=== PATIENT | female | born 1960 | race Caucasian/White ===

== ENCOUNTER 2025-10-05 10:37 | Emergency (ER) | payer MEDICARE, SELFPAY ==
[2025-10-05] VITALS (10 sets, daily range): BP systolic 98–137; BP diastolic 52–84; BMI 33.0
[2025-10-05 12:06] LABS: Hematocrit 38.0 % (37.0-47.0); Hemoglobin 13.0 g/dL (12.0-16.0); Mean Corp Hgb Conc. 34.2 g/dL (33.0-37.0); Mean Corpuscular Volume 82.6 fL (81.0-99.0); Nucleated Red Blood Cells % 0 %; Platelet Count 223 10^3/uL (130-400); Red Cell Dist. Width 13.5 % (11.5-14.5)
[2025-10-05 12:21] LABS: ALT (SGPT) 15 U/L (0-35); AST (SGOT) 21 U/L (14-36); Albumin 3.9 g/dl (3.5-5.0); Alkaline Phosphatase 101 U/L (38-126); Blood Urea Nitrogen 15 mg/dl (7-17); Calcium 9.1 mg/dl (8.4-10.2); Carbon Dioxide 22 mmol/L (22-30); Chloride 104 mmol/L (98-107); Glucose 130 mg/dl (70-99); Lipase 36 U/L (23-300); Potassium 4.0 mmol/L (3.5-5.1); Sodium 135 mmol/L (135-145); Total Protein 6.5 g/dl (6.3-8.2); eGFR > 60.00
--- NOTE | 2025-10-05 14:10 | ED.GENMED ---
History of Present Illness
General
Chief Complaint: Abdominal Pain
Source: patient
Exam Limitations: none
Time Seen by Provider: 10/05/25 13:42
Nursing documentation reviewed up to this point in time: agreed with
History of Present Illness
History of Present Illness:
Patient is a 65-year-old female with history of amyloidosis who presents to the emergency department for evaluation of abdominal pain. Patient states symptoms began on Monday night around 7:30 PM after eating dinner. She describes initially a
sharp pain in her right lower abdomen/groin as well as her right back. She had a few episodes of vomiting at that point. Yesterday, symptoms seem improved until approximately 10 PM where she reports worsening pain in her back as well as upper
abdomen. She had a few episodes of vomiting once again which she improved symptoms temporarily. Pain seems to be exacerbated after eating.
Today after waking she had returned of symptoms prompting evaluation in the emergency department. Patient denies any fever or chills. No diarrhea, constipation, dysuria, or hematuria. No chest pain or shortness of breath
Patient takes Eliquis. She does have a past history of kidney stones. 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
Past History
Past History
ED Past Medical History: Other (Ovarian cysts) and Other (Kidney stones, celiac ds)
ED Past Surgical History: Other (Laparoscopies for endometriosis)
Social History
Tobacco: Non-smoker
Alcohol: None
Drug: None
Personal:
Living: with family
Employment: Employed
Review of Systems
Review of Systems
Allergies reviewed?: Yes
All Other Systems: ROS reviewed and negative except as documented in HPI and ROS
Phy Exam
Physical Exam
Physical Exam:
Vitals: Patient's vital signs are stable. Afebrile
General: Patient appears in no distress at rest.
Skin: Warm and dry, no rashes or lesions
Head: Normocephalic, atraumatic
Eyes: Sclera nonicteric.
Throat: Protecting airway
Neck: Normal ROM, no cervical spine tenderness, no meningismus
Cardiac: Regular rate and rhythm, no murmurs.
Pulm: Normal respiratory effort. Lungs clear bilaterally
Abdomen: Abdomen soft throughout with areas of tenderness both in left lower quadrant as well as right lower quadrant. No rebound tenderness. Negative Emery sign.
Back: No midline spinal tenderness. Mild reproducible tenderness along right flank without rash or ecchymoses.
Extremities: No evidence of cyanosis or edema
Neuro: AAOx3. Grossly intact
Psychiatric: Normal affect.
Course
Orders/Labs/Results
Orders:
Orders
10/05/25 11:37
IV Insert/Care/Rem.- Treatment PRN
10/05/25 11:52
Complete Blood Count/With Diff Urgent
Comprehensive Metabolic Panel Urgent
Lipase Urgent
10/05/25 14:08
0.9% Sodium Chloride 1000 ml [Nss] 1,000 ml IV BOLUS
Morphine Sulfate 4 mg IV NOW STA
US Abdomen Complete/Upper Urgent
Comment:
Reason For Exam: postprandial abdominal/back pain; N/V
10/05/25 14:27
Urinalysis Reflex To Culture Urgent
Date Specimen was Collected: 10/05/25
Time Specimen was Collected: 14:18
Urine Microscopic Reflex Cult Urgent
Urine Culture Urgent
CHINEDU Source: U
Specimen Description:
Date Specimen was Collected: 10/05/25
Time Specimen was Collected: 14:18
10/05/25 17:16
Abdomen/Pelvis wo Contrast CT [CT Abd/pelvis Wo Iv Cont] Urgent
Comment:
Reason For Exam: Right flank pain
10/05/25 19:36
Ciprofloxacin HCl [Cipro] 250 mg PO NOW STA
Morphine Sulfate 4 mg IV NOW STA
Tamsulosin [Flomax] 0.4 mg PO NOW STA
10/05/25 19:43
Add On - Microbiology Urgent
Tests Added?: urine culture
Abnormal Lab Results
10/05/25 10/05/25
11:52 14:27
WBC 12.5 H 10^3/uL
(4.8-10.8)
MPV 10.6 H fL
(7.4-10.4)
Absolute Neuts (auto) 10.8 H 10^3/uL
(1.4-6.5)
Absolute Lymphs (auto) 0.9 L 10^3/uL
(1.2-3.4)
Absolute Monos (auto) 0.7 H 10^3/uL
(0.1-0.6)
Neutrophils % 86.3 H %
(42.2-75.2)
Lymphocytes % 6.9 L %
(20.5-51.1)
Glucose 130 H mg/dl
(70-99)
Urine Ketones 1+ A
(Negative)
Ur Occult Blood Reflex 4+ A
(Negative)
Leukocyte Esterase Rfl 1+ A
(Negative)
Urine RBC 50-60 A /HPF
(0-2)
Urine WBC (Reflex) 11-15 A /HPF
(0-5)
Urine Bacteria (Reflex) Moderate A
(Negative)
Urine Albumin (Reflex) 2+ A
(Neg - Trace)
10/05/25 11:52
10/05/25 11:52
Vital Signs
Initial and Last Documented VS:
Initial Vital Signs
Temp Pulse Resp BP Pulse Ox
97.8 F 99 20 137/84 97
10/05/25 10:40 10/05/25 10:40 10/05/25 10:40 10/05/25 10:40 10/05/25 10:40
Last Documented Vital Signs
Temp Pulse Resp BP Pulse Ox
97.8 F 64 14 114/64 94
10/05/25 15:00 10/05/25 20:00 10/05/25 20:00 10/05/25 20:00 10/05/25 20:00
MDM/Problems Addressed
Differential Diagnosis Includes:
Not limited to: Biliary colic, acute cholecystitis, choledocholithiasis, renal colic, pyelonephritis, appendicitis, diverticulitis, etc.
MDM/Problems Addressed:
65-year-old female with remittent abdominal pain as well as nausea/vomiting. No fever, urinary symptoms, or changes in bowel habits. No chest pain or shortness of breath. Vital stable. On exam, comfortable at rest however does have reproducible
tenderness with left and right lower abdomen. No rebound tenderness or guarding. Negative Emery sign. Cardio/pulmonary assessment unremarkable.
Differential broad as above. Location of pain seems to be migrating throughout abdomen and back. However, there does seem to be a clearly postprandial nature to symptoms.
Labs were sent prior to my evaluation significant for a mild leukocyte 1.5 with left shift. Chemistry unremarkable. Will start with abdominal ultrasound to evaluate for any obstructive uropathy or biliary etiology. Plans to pursue CT scan if no
acute abnormality identified. Will give IV fluids, analgesia and reassess
Update: Ultrasound reveals right-sided hydronephrosis with potential small stone, as well as possible gallstone without other findings of acute cholecystitis. On reassessment, patient's pain has improved. Will proceed with CT noncontrast of
abdomen/pelvis for further evaluation.
Update: CT reveals approximately 3 mm right proximal ureteral stone. No abnormality of gallbladder identified on CT imaging. Suspect patient symptoms are secondary to obstructing ureteral stone. Also notes concern for omental metastatic
disease�this was discussed with patient at length who currently follows with an oncologist for multiple myeloma. She will discuss these findings with them outpatient for further workup as needed.
UA somewhat equivocal for infection. Her pain is well-controlled. I did discuss with urology, Dr. Cabral. He feels appropriate for trial of stone passage outpatient however does recommend course of antibiotics, ciprofloxacin Pending urine
culture. Strict return precautions were discussed including any signs of infection or intractable pain. Patient otherwise stable for discharge home. She will follow-up with urology and oncology outpatient.
Chronic conditions affecting care:
Amyloidosis
Acute Exacerbation and/or Progression of Chronic Illness:
N/A
*Radiology
Radiology exam reviewed: radiology read reviewed
*Pulse Oximetry
SaO2: 95
Oxygen Mode of Delivery: Room air
Patient hypoxic: no
*EKG
Interpreted by ED Provider?: NA
*Mirror Machine Feeder Interpretation
Rate: Mirror Machine Feeder- N/A
*Critical Care Note
Total Time (30-74mins, 75-104mins- exclusive of procedures): Not Applicable
Patient Management
Discussion with other providers: Customer Trainer ( Case discussed with urology)
ED Attending Note
-
Portions of this chart may have been created with voice recognition software.� Occasional wrong word or��sound alike� substitutions may have occurred due to the inherent limitations of voice recognition software.
Discharge Plan
Departure
Patient Disposition: Home (Routine Discharge)
Date of Disposition: 10/05/25
Time of Disposition: 19:42
Patient with high blood pressure during this ER visit?: Yes
Condition: Good
Discharge Problem:
Calculus of proximal right ureter
Instructions: Kidney Stones (DC), BLOOD PRESSURE
Prescriptions:
New
ciprofloxacin HCl 250 mg tablet
250 mg PO BID 7 Days Qty: 14 0RF
tamsulosin 0.4 mg capsule
0.4 mg PO DAILY 14 Days Qty: 14 0RF
No Action
tramadol 50 MG tablet
50 mg PO TIDPRN PRN (Reason: back pain)
dorzolamide 1 DROP drops
1 drp ophthalmic (eye) BID
travoprost (benzalkonium) 2.5 ML drops
2.5 ml OP HS
cyclobenzaprine 10 MG tablet
10 mg PO TIDPRN PRN (Reason: pain) Qty: 12 0RF
multivitamin [One Daily Multivitamin] 1 EACH tablet
1 ea PO DAILY
metronidazole 500 MG tablet
500 mg PO TID
famotidine 20 MG tablet
20 mg PO DAILYPRN PRN (Reason: as directed)
levofloxacin 500 MG tablet
500 mg PO DAILY
dicyclomine 10 MG capsule
10 mg PO QIDPRN PRN (Reason: as directed)
Vitamin D3:
1 tab PO DAILY
Referrals:
Shaquille Matos MD [Active, [facility]]
Tyler Cabral MD [Active, Urology] - Next open appointment
Macie Joshi CRNP [Family Provider]
Activity Restrictions/Additional Instructions:
RETURN TO THE EMERGENCY DEPARTMENT WITH ANY FEVER, INTRACTABLE PAIN, INABILITY TO URINATE, INTRACTABLE VOMITING, SEVERE BACK PAIN, WORSENING CURRENT SYMPTOMS, OR ANY OTHER CONCERNS
- As discussed�your CT scan showed a 3 mm proximal right ureteral stone which is likely the cause of your pain today. You were also found to have abnormalities of your omentum on CT scan. Please ensure that you follow-up closely with your
oncologist for further workup as needed. You were also found to have gallstones�follow-up with general surgery outpatient
- Continue to take Tylenol at home as needed for pain. You can take oxycodone (prescription which you already have) for intractable pain. A prescription for antibiotics has been sent to the pharmacy which you to take as directed.
- Please follow a bland diet. Stay well-hydrated. Take Flomax daily until you pass stone. Continue to strain your urine daily.
- Follow-up with urology and oncology for further evaluation/management as needed
Monitor your symptoms closely and return to the emergency department with any acute worsening/new symptoms or any other concerns
Interventions
Interventions:
*General Assessment Last Done: 10/05/25 13:06
*Neglect/Abuse Screening Last Done: 10/05/25 13:06
*ED COVID-19 Vaccine History Last Done: 10/05/25 10:40
*ED Influenza Vaccine History Last Done: 10/05/25 10:40
[facility] Risk Assessment Tool Last Done: 10/05/25 13:03
*Risk Screen - Suicide (C-SSRS) Last Done: 10/05/25 10:40
*Nursing Disposition Last Done: 10/05/25 20:54
IO-Patvfd-Nhywfclits Assessment Last Done: 10/05/25 20:18
Discharge Date and Time
Discharge Date/Time: 10/05/25 20:54
Print Language: MONTSERRATIAN
[2025-10-05] MEDS: NSS 1000 IV (14:19)
[2025-10-05] MEDS: MORPHINE SULFATE 4 MG IV ×2 (14:20→20:23)
[2025-10-05 15:21] LABS: Urine Character Cloudy (Clear)
[2025-10-05 16:03] LABS: Urine Squamous Cell 0-2 /LPF (Few); Urine Urothelial Cell 0-2 /LPF (FEW)
[2025-10-05 16:04] LABS: Urine Red Blood Cell 50-60 /HPF (0-2)
--- NOTE | 2025-10-05 19:55 | EDRN ---
Called pharmacy for abdi PO
[2025-10-05] MEDS: FLOMAX 0.4 MG PO (20:18)
[2025-10-05] MEDS: CIPRO 250 MG PO (20:18)
== END 2025-10-05 20:54 | disposition home or self-care (01) ==
LOC: EMR 10:37
PROVIDERS: Emergency Medicine; Physician Assistant; EMERGENCY PHYSICIAN Emergency Medicine; FAMILY PHYSICIAN Nurse Practitioner Family
DX: N13.2 Hydronephrosis with renal and ureteral calculous obstruction (principal); R03.0 Elevated blood-pressure reading, without diagnosis of hypertension; E85.9 Amyloidosis, unspecified; K90.0 Celiac disease; K86.81 Exocrine pancreatic insufficiency; C90.00 Multiple myeloma not having achieved remission; Z87.442 Personal history of urinary calculi
CPT/HCPCS: 99284; 96374; 96376; 96361; 74176; 76700; 80053; 81003; 81015; 83690; 85025; 87086

== ENCOUNTER 2025-10-08 03:02 | Inpatient (IN) | payer MEDICARE, SELFPAY ==
[2025-10-07 18:10] VITALS: BP 140/81
[2025-10-07 18:58] LABS: Hematocrit 38.5 % (37.0-47.0); Hemoglobin 13.1 g/dL (12.0-16.0); Mean Corp Hgb Conc. 34.0 g/dL (33.0-37.0); Mean Corpuscular Volume 83.3 fL (81.0-99.0); Nucleated Red Blood Cells % 0 %; Platelet Count 213 10^3/uL (130-400); Red Cell Dist. Width 13.3 % (11.5-14.5)
[2025-10-07 19:18] LABS: ALT (SGPT) 14 U/L (0-35); AST (SGOT) 20 U/L (14-36); Albumin 4.2 g/dl (3.5-5.0); Alkaline Phosphatase 111 U/L (38-126); Blood Urea Nitrogen 15 mg/dl (7-17); Calcium 9.2 mg/dl (8.4-10.2); Carbon Dioxide 25 mmol/L (22-30); Chloride 99 mmol/L (98-107); Glucose 139 mg/dl (70-99); Potassium 4.0 mmol/L (3.5-5.1); Sodium 134 mmol/L (135-145); Total Protein 6.9 g/dl (6.3-8.2); eGFR > 60.00
[2025-10-07 21:40] VITALS: BMI 32.5
[2025-10-07 21:43] VITALS: BP 140/83
[2025-10-07 22:00] VITALS: BP 141/78
[2025-10-07] MEDS: DILAUDID 0.5 MG IV (22:46)
[2025-10-07] MEDS: REGLAN 10 MG IV (22:48)
[2025-10-07] MEDS: NSS 1000 IV (22:49)
--- NOTE | 2025-10-07 23:58 | ED.GENMED ---
History of Present Illness
General
Chief Complaint: Flank Pain
Source: patient
Exam Limitations: none
Time Seen by Provider: 10/07/25 22:03
Nursing documentation reviewed up to this point in time: agreed with
History of Present Illness
History of Present Illness:
Note:
CHIEF COMPLAINT(S)
Pain and vomiting.
HISTORY OF PRESENT ILLNESS
The patient is a 65-year-old female with a history of multiple myeloma who presented with ongoing pain and vomiting. She initially sought care on Monday for these symptoms and was prescribed ciprofloxacin and tamsulosin. Despite this, she continues
to experience significant pain and episodes of vomiting, including just before this visit. She consulted her oncologist to discuss her current medications and was advised to seek an alternative analgesic, given that oxycodone was not providing
sufficient relief for her kidney-related pain. The patient mentioned experiencing excruciating pain that radiates from her back to her leg and down to her groin, describing it as severe enough to cause emotional distress. She has also noted a
low-grade fever that fluctuates, with a recent temperature recorded at 100�F, although typically her baseline temperature is 97.5�F. The patient expressed concerns about her pain worsening overnight and requested further investigation and pain
management.
PAST MEDICAL AND SURGICAL HISTORY
The patient has a history of multiple myeloma and amyloidosis.
ADDITIONAL HISTORY OBTAINED FROM SOURCES OTHER THAN THE PATIENT
Family: The patients can provide a list of her medications via her patient portal.
CHRONIC MEDICAL CONDITIONS SIGNIFICANTLY AFFECTING CARE
1. Multiple myeloma.
2. Amyloidosis.
ALLERGIES
The patient is allergic to penicillin and sulfa drugs.
REVIEW OF SYSTEMS
- Constitutional: Reports a low-grade fever and temperature variations.
- Gastrointestinal: Reports nausea and vomiting.
- Musculoskeletal: Reports excruciating pain radiating from the back to the leg and groin.
PHYSICAL EXAM
General: Alert, no acute distress.
Skin: Warm, dry.
Head: Normocephalic, atraumatic.
Neck: Supple, trachea midline.
Eye Ears, nose, mouth and throat: Oral mucosa moist.
Cardiovascular: Normal peripheral perfusion, No edema.
Respiratory: Respirations are non-labored.
Gastrointestinal: Abdomen nondistended.
Back: Normal range of motion, Normal alignment.
Musculoskeletal: Normal ROM, normal strength.
Neurological: Alert and oriented to person, place, time, and situation, No focal neurological deficit observed.
Psychiatric: Cooperative, appropriate mood & affect.
PROBLEM LIST
Acute Problems:
1. Pain and vomiting.
2. Low-grade fever.
Chronic Problems:
1. Multiple myeloma.
2. Amyloidosis.
PLAN
1. Initiate pain management with stronger analgesic options, potentially a fentanyl patch.
2. Admit the patient for overnight observation and pain control.
3. Consult with urology for further evaluation and possibly a urography tomorrow.
4. Confirm medication list with the patients via the patient portal and address any medication needs.
5. Administer dilaudid as prescribed for pain control.
DIFFERENTIAL DIAGNOSIS
The Differential Diagnosis includes, in no particular order and is not limited to:
1. Kidney stones.
2. Infection-related pyelonephritis.
3. Renal colic.
4. Neuropathic pain due to multiple myeloma.
5. Metastatic disease-associated pain.
6. Acute or chronic pancreatitis.
7. Gastrointestinal obstruction.
8. Drug-induced nausea/vomiting.
9. Biliary colic.
10. Urological malignancy.
Disposition:
SUMMARY OF ENCOUNTER
The patient, a 65-year-old female with a history of multiple myeloma, amyloidosis, and a known right-sided kidney stone, presented to the emergency department due to uncontrolled pain, nausea, and vomiting. Despite previous medication, her chronic
pain medications were inadequate in managing her current symptoms, and she expressed concern about ongoing low-grade fevers. An ultrasound was performed today, revealing findings consistent with previous evaluations, suggesting a persistent issue
potentially related to her kidney stone.
DISPOSITION
Admit for overnight observation and pain control.
ASSESSMENT
The patient�s symptoms align with kidney stone-related pain exacerbated by her chronic conditions of multiple myeloma and amyloidosis. Her low-grade fever could be associated with the kidney stone or another underlying issue.
PLAN
1. Initiate pain management with stronger analgesic options, potentially a fentanyl patch.
2. Admit the patient for overnight observation and pain control.
3. Consult with urology for further evaluation and possibly a urography tomorrow.
4. Confirm medication list with the patients via the patient portal and address any medication needs.
5. Administer dilaudid as prescribed for pain control.
MEDICATION RECONCILIATION
1. Fentanyl patch considered for pain management.
2. Administer dilaudid for acute pain control.
MEDICAL DECISION MAKING
1. Number and Complexity of Problems Addressed: Chronic conditions affecting care include multiple myeloma, amyloidosis, and kidney stone. Differential diagnosis includes kidney stones, infection-related pyelonephritis, renal colic, neuropathic pain
due to multiple myeloma, metastatic disease-associated pain, acute or chronic pancreatitis, gastrointestinal obstruction, drug-induced nausea/vomiting, biliary colic, and urological malignancy.
2. Data:
Category 1: Review of prior ultrasound findings.
Category 2: Information obtained from patients via potential consultation for medication listing.
Category 3: Discussion of management with urology.
3. Risk:
Prescription drug management was considered for fentanyl patch and dilaudid.
Admission was decided to manage pain and further evaluate with urology consultation.
DIAGNOSIS
1. Kidney stone (N20.0)
2. Multiple myeloma (C90.0)
3. Amyloidosis (E85.9)
4. Pain not elsewhere classified (R52)
Past History
Past History
ED Past Medical History: Other (Ovarian cysts) and Other (Kidney stones, celiac ds)
ED Past Surgical History: Other (Laparoscopies for endometriosis)
Social History
Tobacco: Non-smoker
Alcohol: None
Drug: None
Personal:
Living: with family
Employment: Employed
Review of Systems
Review of Systems
Allergies reviewed?: Yes
Phy Exam
Physical Exam
Physical Exam:
.
Course
Orders/Labs/Results
Orders:
Orders
10/07/25 18:39
CMP [Comprehensive Metabolic Panel] Urgent
Complete Blood Count/With Diff Urgent
10/07/25 22:26
HYDROmorphone [Dilaudid] 0.5 mg IV NOW STA
10/07/25 22:27
Metoclopramide [Reglan] 10 mg IV NOW STA
10/07/25 22:28
US Kidneys [US Renal Only W/O Bladder] Urgent
Comment:
Reason For Exam: r flank pain, known kidney stone from ct on 10/05
10/07/25 22:30
0.9% Sodium Chloride 1000 ml [Nss] 1,000 ml IV 250 mls/hr
10/08/25 02:51
Admit/Transfer Patient As Directed
Co-Sign Provider:
Level of Care: Inpatient admission
Assign to:: Medical/Surgical
Physician / Group: [facility]
Diagnosis: R Ureteral Stone
Reason for Hospitalization: R Ureteral Stone
Expected length of stay greater than two midnights?: Yes
ELOS- Estimated Length of Stay in days: 3
I certify the patient meets the requirements for IP care: Yes
PRN Pain Medication Management As Directed
May give lesser potent ordered pain med per pt: Yes
preference::
Protocol:: Medication orders for pain may be administered in a
manner that supports deferring to patient preference
when the pt is:
- Requesting an ordered lesser potent pain medication.
Least to most potent pain medications are defined
as: acetaminophen < NSAID < tramadol < opioids
(morphine, oxycodone, hydromorphone).
- Requesting a lesser dose of the same medication IF
ORDERED.
- Requesting a less intrusive route of administration
if both routes are prescribed by the provider (PO <
IV).
10/08/25 02:52
Code Status As Directed
Resuscitation Status: Full Code
10/08/25 03:38
0.9% Sodium Chloride 1000 ml [Nss] 1,000 ml IV 85 mls/hr
Acetaminophen [Tylenol] 650 mg PO Q4HPRN PRN
HYDROmorphone [Dilaudid] 0.5 mg IV Q4HPRN PRN
Prochlorperazine [Compazine] 5 mg IV Q6HPRN PRN
10/08/25 03:38
UROLOGY CONSULT Routine
Consulting Provider: Yajaira Bourne
Was physician already notified: Yes
Comment: R Ureteral Stone
Activity As Directed
Activity Level: Ambulate
With Assistance
I/O [Intake/ Output] As Directed
Frequency: Per unit guidelines
Pneumatic Compression Sleeves As Directed
Type: Knee high
Strain Urine As Directed
Vital Signs As Directed
Frequency: Per unit guidelines
Oxygen Therapy [O2 Therapy] [RESP] Routine
Titrate/Wean O2 to maintain O2 sat greater than (%): 94
DX Deep Vein Thrombosis Video Routine
10/08/25 04:00
Ciprofloxacin 200 mg/[id number] [Cipro 200 mg] 100 ml IV Q12H
10/08/25 05:32
Basic Metabolic Panel IN AM
Complete Blood Count/No Diff IN AM
10/08/25 Breakfast
NPO
Allow oral meds: Yes
Allow clear liquids: Sips of Clears
10/08/25 08:00
Morphine Sulfate Extended Rel. [Ms Contin (Extended Release)] 60 mg PO BID
Rosuvastatin Calcium [Crestor] 5 mg PO DAILY
Spironolactone [Aldactone] 25 mg PO DAILY
Tamsulosin [Flomax] 0.4 mg PO DAILY
10/08/25 22:00
Mirtazapine [Remeron] 30 mg PO HS
Abnormal Lab Results
10/07/25
18:39
WBC 12.8 H 10^3/uL
(4.8-10.8)
MPV 10.7 H fL
(7.4-10.4)
Abs Immat Gran (auto) 0.1 H 10^3/uL
(0-0.05)
Absolute Neuts (auto) 11.5 H 10^3/uL
(1.4-6.5)
Absolute Lymphs (auto) 0.4 L 10^3/uL
(1.2-3.4)
Absolute Monos (auto) 0.8 H 10^3/uL
(0.1-0.6)
Neutrophils % 89.9 H %
(42.2-75.2)
Lymphocytes % 3.1 L %
(20.5-51.1)
Sodium 134 L mmol/L
(135-145)
Glucose 139 H mg/dl
(70-99)
10/07/25 18:39
10/07/25 18:39
Vital Signs
Initial and Last Documented VS:
Initial Vital Signs
Temp Pulse Resp BP Pulse Ox
98.2 F 97 18 140/81 97
10/07/25 18:10 10/07/25 18:10 10/07/25 18:10 10/07/25 18:10 10/07/25 18:10
Last Documented Vital Signs
Temp Pulse Resp BP Pulse Ox
98.6 F 99 18 117/68 96
10/08/25 18:45 10/08/25 18:45 10/08/25 18:45 10/08/25 18:45 10/08/25 18:45
*Pulse Oximetry
SaO2: 97
Oxygen Mode of Delivery: Room air
Patient hypoxic: no
*Critical Care Note
Total Time (30-74mins, 75-104mins- exclusive of procedures): Not Applicable
ED Attending Note
-
Portions of this chart may have been created with voice recognition software.� Occasional wrong word or��sound alike� substitutions may have occurred due to the inherent limitations of voice recognition software.
Discharge Plan
Departure
Patient Disposition: Admit
Date of Disposition: 10/07/25
Time of Disposition: 23:59
Presentation/result/management discussed w/ accepting MD/DO: Hospitalist
Discharge Problem:
Kidney stone on right side, Chronic pain exacerbation
Interventions
Interventions:
*General Assessment Last Done: 10/07/25 18:10
*Neglect/Abuse Screening Last Done: 10/07/25 21:40
*ED COVID-19 Vaccine History Last Done: 10/07/25 18:10
*ED Influenza Vaccine History Last Done: 10/07/25 18:10
[facility] Fall Risk Assessment Tool Last Done: 10/07/25 21:40
*Risk Screen - Suicide (C-SSRS) Last Done: 10/07/25 18:10
*Nursing Disposition Last Done: 10/08/25 07:39
NI-Ervqje-Ebaxhfenpe Assessment Last Done: 10/07/25 21:40
ED-Female Genitourinary Assessment Last Done: 10/07/25 21:40
[2025-10-08] VITALS (17 sets, daily range): BP systolic 113–148; BP diastolic 61–94; BMI 31.4
[2025-10-08] MEDS: NSS 1000 IV ×3 (02:54→11:44)
--- NOTE | 2025-10-08 02:54 | HPS.HSE ---
Family Physician
-
Family Physician: AMALIA Singh
Chief Complaint
-
R Flank Pain, N/V
History of Present Illness
Patient is a 65y F with PMH significant for multiple myeloma and systemic amyloidosis who presents to ED complaining of R flank pain and N/V for several days. Patient states that symptoms started on Monday evening. She had pain in the R flank
with radiation into the abdomen / R groin. She had associated N/V. Her symptoms resolved and she felt well all day Monday. Sat evening her symptoms returned. Patient continued to have intermittent symptoms - mostly in the evenings. She
presented to the ED here on 10/[address] scan showed R ureteral stone with moderate hydronephrosis. Patient was discharged on Cipro and tamsulosin for trial of stone passage.
She has continued to have pain and intermittent N/V. She reports chills and general fatigue.
With persistent symptoms, she returned to the ED this evening for further evaluation.
Medical History
Past Medical History
Past Medical History: Reports Other
Additional Past Medical History:
Multiple Myeloma
Systemic Amyloidosis with Multiorgan Involvement
Infiltrative Cardiomyopathy / CHF
History of DVT / PE
Past Surgical History: Reports Other
Additional Past Surgical History:
Ex Lap (Endometriosis)
Carpal Tunnel Surgery
Excisional Biopsy
Social History
Tobacco: Non-smoker
Alcohol: None
Drug: None
Family History
Family History: Not pertinent
Allergies / Home Medications
Allergies reflects when Allergies were last updated in [facility].
Home Medications with original date entered in [facility]
Allergy/Medication List:
Allergies
Allergy/AdvReac Type Severity Reaction Status Date / Time
Penicillins Allergy Unknown Rash Verified 10/07/25 18:13
Sulfa (Sulfonamide Allergy Unknown Unknown Verified 10/07/25 18:13
Antibiotics)
cephalexin (From Keflex) Allergy Unknown Verified 10/07/25 18:13
clindamycin Allergy Unknown Verified 10/07/25 18:13
Home Medications
famotidine 20 mg tablet 20 mg PO DAILYPRN PRN as directed 05/05/18
multivitamin (One Daily Multivitamin tablet) 1 ea PO DAILY 05/05/18
apixaban 5 mg tablet (Eliquis) 5 mg PO BID 10/08/25
mirtazapine 30 mg tablet 30 mg PO HS 10/08/25
morphine 60 mg tablet,extended release 60 mg PO BID 10/08/25
potassium chloride 10 mEq capsule,extended release 10 meq PO DAILY 10/08/25
prochlorperazine maleate 10 mg tablet 10 mg PO Q6H PRN nausea 10/08/25
rosuvastatin 5 mg tablet 5 mg PO DAILY 10/08/25
spironolactone 25 mg tablet 25 mg PO DAILY 10/08/25
torsemide 20 mg tablet 20 mg PO BID 10/08/25
Review of Systems
-
History Source: Patient
A 12 point ROS was completed and negative except as noted: Yes
Constitutional: Reports Fatigue and Chills; Denies Fever
Respiratory: Denies Cough or Trouble Breathing
Cardiac: Denies Chest Pain or Palpitations
Abdomen/GI: Reports Abdominal Pain, Nausea and Vomiting; Denies Diarrhea
: Reports Flank Pain and Bleeding; Denies Dysuria or Frequency
Musculoskeletal: Denies Joint Pain or Edema
Neurological: Denies Dizzy or Headache
Psych: Denies Depression or Anxiety
Physical Exam
Vital Signs
Vital Signs
Temp Pulse Resp BP Pulse Ox
98.2 F 97 18 125/74 96
10/07/25 18:10 10/07/25 18:10 10/07/25 18:10 10/08/25 01:00 10/08/25 01:00
Physical Exam
General: Other (65y F in no acute distress at present.)
HEENT: Moist mucous membranes and PERRLA
Respiratory: Clear; No Wheezes, Rales or Rhonchi
Cardiac: S1/S2 and Regular Rhythm; No Murmur
GI: Soft, Non Distended, Normal Bowel Sounds and Other (Mild R sided abdominal tenderness. No rebound / guarding.)
Musculoskeletal: No Clubbing, No Cyanosis and No Edema
Neuro: AO x 3
Laboratory Results
-
10/07/25 18:39
10/07/25 18:39
Laboratory Results
Total Bilirubin 0.8 mg/dl (0.2-1.3) 10/07/25 18:39
AST 20 U/L (14-36) 10/07/25 18:39
ALT 14 U/L (0-35) 10/07/25 18:39
Alkaline Phosphatase 111 U/L (38-126) 10/07/25 18:39
Impression/Plan
-
A/P: Patient is a 65y F with PMH significant for MM and systemic amyloidosis who presents to ED complaining of persistent R flank pain and N/V.
Right Ureterolithiasis
Moderate R Hydronephrosis secondary to the above
- Admit for further evaluation and treatment.
- NPO, IVFs, pain control. Tamsulosin and strain urine overnight.
- Urology consulted for possible intervention if needed.
- Hold further Eliquis (last dose was Monday).
- Continue empiric abx with Cipro given multiple drug allergies.
- Follow for clinical improvement.
Systemic Amyloidosis
Multiple Myeloma
Infiltrative Cardiomyopathy
- Stable. Continue spironolactone. Hold torsemide acutely.
- Follow I/Os, daily weights, etc.
- Continue current med regimen for chronic pain.
- IV Dilaudid PRN acute / breakthrough pain.
DVT Prophylaxis: SCDs while Eliquis on hold. Resume anticoagulation when OK with Urology.
Code Status: Full
[2025-10-08] MEDS: CIPRO 200 MG 100 IV (04:12)
[2025-10-08] MEDS: DILAUDID 0.5 MG IV ×2 (04:15→10:24)
[2025-10-08 06:08] LABS: Hematocrit 31.8 % (37.0-47.0); Hemoglobin 11.1 g/dL (12.0-16.0); Mean Corp Hgb Conc. 34.9 g/dL (33.0-37.0); Mean Corpuscular Volume 81.7 fL (81.0-99.0); Platelet Count 187 10^3/uL (130-400); Red Cell Dist. Width 13.3 % (11.5-14.5)
[2025-10-08 06:40] LABS: Blood Urea Nitrogen 14 mg/dl (7-17); Calcium 8.5 mg/dl (8.4-10.2); Carbon Dioxide 21 mmol/L (22-30); Chloride 105 mmol/L (98-107); Estimated Creatinine Clearance 85 ml/min; Glucose 119 mg/dl (70-99); Potassium 3.9 mmol/L (3.5-5.1); Sodium 134 mmol/L (135-145); eGFR > 60.00
[2025-10-08] MEDS: COMPAZINE 5 MG IV (10:23)
--- NOTE | 2025-10-08 11:07 | CONS.URO ---
Consultation
-
Date/Time Consultation Performed: 10/08/25, 0730
Performing Provider: Steffen
Reason for Consultation: obstructing R ureteral stone
Medical History
History of Present Illness
65y F with PMH significant for multiple myeloma and systemic amyloidosis who presents for recurrent pain with 3 mm R proximal obstructing ureteral stone. She initially presented to ER on 10/05 with R flank pain, n/v with pain radiating to R
groin. CT scan showed 3 mm R ureteral stone with moderate hydronephrosis. She was discharged on cipro and tamsulosin for trial of stone passage. Pain persisted along with low grade fevers to 100F, intermittent n/v and thus re-presented to ER.
In the ER she is overall well appearing however in mild discomfort. AFVSS. WBC 12 > 10, Cr stable 0.8. UA +LE, 11-15 WBCs, moderate bacteria.
Renal US shows persistent R hydronephrosis.
Allergies/Home Medications
Allergies
Allergy/AdvReac Type Severity Reaction Status Date / Time
Penicillins Allergy Unknown Rash Verified 10/07/25 18:13
Sulfa (Sulfonamide Allergy Unknown Unknown Verified 10/07/25 18:13
Antibiotics)
cephalexin (From Keflex) Allergy Unknown Verified 10/07/25 18:13
clindamycin Allergy Unknown Verified 10/07/25 18:13
Home Medications
�Medication �Instructions �Recorded �Confirmed �Type
famotidine 20 mg tablet 20 mg PO DAILYPRN PRN as directed 05/05/18 10/08/25 History
multivitamin (One Daily 1 ea PO DAILY 05/05/18 10/08/25 History
Multivitamin tablet)
apixaban 5 mg tablet (Eliquis) 5 mg PO BID 10/08/25 10/08/25 History
mirtazapine 30 mg tablet 30 mg PO HS 10/08/25 10/08/25 History
morphine 60 mg tablet,extended 60 mg PO BID 10/08/25 10/08/25 History
release
potassium chloride 10 mEq 10 meq PO DAILY 10/08/25 10/08/25 History
capsule,extended release
prochlorperazine maleate 10 mg 10 mg PO Q6H PRN nausea 10/08/25 10/08/25 History
tablet
rosuvastatin 5 mg tablet 5 mg PO DAILY 10/08/25 10/08/25 History
spironolactone 25 mg tablet 25 mg PO DAILY 10/08/25 10/08/25 History
torsemide 20 mg tablet 20 mg PO BID 10/08/25 10/08/25 History
Physical Exam
Vital Signs
Vital Signs
Temp Pulse Resp BP Pulse Ox
99.1 F 85 18 135/85 95
10/08/25 07:36 10/08/25 10:22 10/08/25 10:22 10/08/25 10:22 10/08/25 10:22
Lab / Testing Results
Laboratory Results
10/08/25 05:32
10/08/25 05:32
Physical Exam
General: Well Developed and Pain
HEENT: Normocephalic
Respiratory: Clear
GI: Soft
Genito-urinary: No Costovertebral Tend
Skin: Warm and Dry
Neuro: Awake, Alert and Oriented
Assessment / Plan
-
65F with 3 mm proximal R ureteral stone with moderate R hydronephrosis, low grade fevers and pain, nausea/vomiting refractory to medication.
Plan:
- NPO
- OR today for R ureteral stent
- Continue IVF
- Continue flomax
- Continue cipro
- F/u urine culture
--- NOTE | 2025-10-08 11:55 | W.PN.HOSP.TC ---
Today's Communication/Plan
-
Urology eval
Assessment / Plan
Assessment / Plan
Physical exam:
General: Well Developed, Well Nourished and No Apparent Distress
HEENT: Normocephalic, Atraumatic and Moist Mucous Membranes
Respiratory: Clear to Auscultation; Negative Wheezes, Rales or Rhonchi
Cardiac: Regular Rhythm and S1/S2
GI: Soft, Nontender and Nondistended
Musculoskeletal: No Clubbing, No Cyanosis and No Edema
Neuro: Awake, Alert and Oriented, no neuro deficits
Psych: Calm
A/P:
Right Ureterolithiasis
Moderate R Hydronephrosis secondary to the above
- Admit for further evaluation and treatment.
- NPO, IVFs, pain control. Tamsulosin and strain urine overnight.
- Urology consulted for possible intervention if needed.
- Hold further Eliquis (last dose was Monday).
- Continue empiric abx with Cipro given multiple drug allergies.
- Follow for clinical improvement.
- D/C planning either later today or in am
Systemic Amyloidosis
Multiple Myeloma
Infiltrative Cardiomyopathy
- Stable. Continue spironolactone. Hold torsemide acutely but give Lasix 20 mg iv x1 given how much fluid she has received and some initial symptoms.
- Follow I/Os, daily weights, etc.
- Continue current med regimen for chronic pain.
- IV Dilaudid PRN acute / breakthrough pain.
Chronic pain syndrome with narcotic dependence:
Continue chronic pain medication
DVT Prophylaxis: SCDs while Eliquis on hold. Resume anticoagulation when OK with Urology.
Code Status: Full
Anticipated Discharge: Today
Subjective/Interval History
-
Date of Service: October 08, 2025
Patient states pain improving this morning, no sob but later on RN reported patient c/o abd distention/sob.
Objective Data
-
Labs:
Laboratory Results
10/08/25
05:32
WBC 10.1
Hgb 11.1 L
Hct 31.8 L
Plt Count 187
Sodium 134 L
Potassium 3.9
Chloride 105
Carbon Dioxide 21 L
BUN 14
Creatinine 0.8
Glucose 119 H
Calcium 8.5
Vital Signs:
Vital Signs
Temp Pulse Resp BP Pulse Ox
98.9 F 83 16 133/75 97
10/08/25 11:10 10/08/25 11:10 10/08/25 11:10 10/08/25 11:10 10/08/25 11:10
[2025-10-08] MEDS: LASIX 20 MG IV (12:57)
--- NOTE | 2025-10-08 13:19 | PTCARENOTE ---
TT sent to Dr Almaraz at 1221- Pt with history of CHF- POLO on exertion to bathroom and she stated her abdomen is feeling 'bloated'. IVF rate decreased 85/hr. One time dose of IV lasix given.
[2025-10-08] MEDS: CIPRO 200 MG IV (15:39)
--- NOTE | 2025-10-08 16:14 | W.SUR.POST ---
Surgical Immediate Post Op
Note
Pre Op Diagnosis: rt prox uretral stone with intractable pain hydro
Post Op Diagnosis: same
Procedure Performed: rt ureteroscopy and laser stent
Primary Surgeon:maegan
Secondary Surgeons:
Anesthesia: chambers general
Estimated Blood Loss: 1
Fluids: nss
Drains/Shunts: 6 fr 24 cm jj stent
Specimens/Cultures:
Doppler/Duplex/Angio (Y/N):
Complications: 0
Operative Findings:3 mm ston stuck rt prox uretr with obstruction
--- NOTE | 2025-10-08 17:08 | W.DCSUMMARY ---
Discharge Summary
Discharge Data
Date of Admission: 10/08/25
Date of Discharge: 10/08/25
Total time spent discharging patient (in min): 33
-
Pending Results: No
Hospital Course
Patient is 65 years old female with past medical history of systemic amyloidosis, multiple myeloma, infiltrative cardiomyopathy, DVT/PE in the past on anticoagulation, presented to the hospital with symptomatic obstructive ureteral stone. Patient
had been in the ED recently for ureteral stone and she was sent home but came back with worsening pain. Urology consulted. She received IV Lasix 20 mg x 1 prior to procedure due to the fact that she received significant IV fluid and instructed to
go back to her oral diuretics postprocedure. Urology took her to the OR on 10/08 and she had right ureteroscopy, laser lithotripsy of stone, and right double-J stent placement. Patient did well postprocedure and urology cleared her for discharge.
Urology recommended to hold her home anticoagulation for 24 to 48 hours after procedure. Her urine culture had no growth and she remained afebrile and normal white blood cell count so no indications for antibiotics. She does have some pain
medications (narcotics) left from prior visit and she will take those if needed. Of note, CT scan of the abdomen also was abnormal and showed multiple other abnormalities including a masslike lesion on the right buttock measuring 10 x 2.2 cm and
posterior midline lumbosacral region measuring 6.2 x 3.5 cm, and also soft tissue attenuation throughout the mesentery and peritoneum suspicious for metastatic implants. We discussed with patient and family that these findings merit further workup
and evaluation and she would like to see her outpatient oncologist to discuss further steps with Dr Johnson Montesinos at [facility] who is her outpatient oncologist. Otherwise, patient is pain-free and hemodynamically stable on room air and afebrile.
She will be discharged in relatively stable condition today.
Discharge duration: 32 minutes
Discharge Plan
-
Patient Disposition: Home (Routine Discharge)
Discharge Diagnosis/Procedures: Ureteral stone status post cystoscopy and ureteral stent. Possible urinary tract infection. Hyponatremia. Abnormal CT scan abdomen with possible metastatic lesions or malignancy but unclear etiology. History of
systemic amyloidosis. History of multiple myeloma. History of chronic diastolic congestive heart failure.
Diet: Low Cholesterol, 2 Gram Sodium and Restrict fluids to 64 oz
Activity: As tolerated
Blood Work: Please PCP to order CBC, BMP within 1 week
Specialty Instructions: Weigh Daily- Call MD for wt gain/loss 3 lbs overnight/5 lbs in 1 week
Referrals:
Dhiraj Almendarez MD [Active, Urology] - in one week
Macie Joshi CRNP [Family Provider] - in less than 1 week
Yajaira Bourne MD [Active, Urology] - in one to two weeks
Referral Note: stone gone call doctors tamela or maegan [phone] as early as monday to make appt to have stent out by mon or sometime next week expect frequency urgency blood in urine but return if fever chills
Additional Discharge Medication Instructions: Follow up with oncologist Dr Johnson Montesinos within 1 to 4 weeks for abnormal findings of CT abdomen.
Prescriptions:
Continued
famotidine 20 MG tablet
20 mg PO BID
potassium chloride 10 mEq Capsule, Extended Release
10 meq PO DAILY PRN (Reason: weight gain)
Rx Instructions:
Take 7 capsules by mouth daily
torsemide 20 mg Tablet
20 mg PO BID PRN (Reason: weight gain )
prochlorperazine maleate 10 mg Tablet
10 mg PO Q6H PRN (Reason: nausea)
spironolactone 25 mg Tablet
25 mg PO DAILY
morphine 60 mg Tablet Extended Release
60 mg PO BID
mirtazapine 30 mg Tablet
30 mg PO HS
rosuvastatin 5 mg Tablet
5 mg PO DAILY
cetirizine 10 mg Capsule
10 mg
acetaminophen 500 mg Tablet
1,000 mg PRN (Reason: pain)
Held
Eliquis 5 mg Tablet
5 mg PO BID
Hold Instructions: Resume on 10/10/25.
Discharge Orders:
Discharge Patient (As Directed); Ordered 10/08/25
Ordered By: Triston Almaraz
Discharge Date and Time
Discharge Date/Time: 10/08/25 19:22
Print Language: SYRIAC
--- NOTE | 2025-10-08 19:16 | PTCARENOTE ---
Pt back from OR at aprox 1700. Vitals stable. No c/o. Pt ate dinner. Pt discharged after tolerating her dinner. Discharge instructions given. Pt taken to main lobby with staff member. taking pt home.
== END 2025-10-08 19:22 | disposition home or self-care (01) | DRG 660 ==
LOC: LDRP 03:02
PROVIDERS: Emergency Medicine; Specialist; ADMITTING PHYSICIAN Hospitalist; ATTENDING PHYSICIAN Hospitalist; CONSULT PHYSICIAN Student in an Organized Health Care Education/Training Program; EMERGENCY PHYSICIAN Student in an Organized Health Care Education/Training Program; FAMILY PHYSICIAN Nurse Practitioner Family
PROC: 0T768DZ Dilation of Right Ureter with Intraluminal Device, Via Natural or Artificial Opening Endoscopic (ICD-10-PCS; 2025-10-08)
PROC: 0TF68ZZ Fragmentation in Right Ureter, Via Natural or Artificial Opening Endoscopic (ICD-10-PCS; 2025-10-08)
DX: N13.2 Hydronephrosis with renal and ureteral calculous obstruction (principal); C90.00 Multiple myeloma not having achieved remission; E85.9 Amyloidosis, unspecified; I50.32 Chronic diastolic (congestive) heart failure; I42.9 Cardiomyopathy, unspecified; F11.20 Opioid dependence, uncomplicated; E87.1 Hypo-osmolality and hyponatremia; N17.9 Acute kidney failure, unspecified; G89.4 Chronic pain syndrome; Z88.0 Allergy status to penicillin; Z87.442 Personal history of urinary calculi; Z86.718 Personal history of other venous thrombosis and embolism; Z86.711 Personal history of pulmonary embolism; Z88.1 Allergy status to other antibiotic agents; Z88.2 Allergy status to sulfonamides; Z79.01 Long term (current) use of anticoagulants; Z79.899 Other long term (current) drug therapy
CPT/HCPCS: 74018; 76000; 76775; 80048; 80053; 85025; 85027; 96361; 96374; 96375; 99285; C2617